=== PATIENT | female | born 1965 | race Two or more races ===

== ENCOUNTER 2017-06-12 17:19 | Emergency (ER) | payer MEDICAID, OTHER, SELFPAY ==
[~2017-06-12] VITALS: Ht 160 cm; Wt 79.8 kg
[2017-06-12] MEDS ORDERED: FAMOTIDINE 20 MG TABLET PO ONE (18:00)
[2017-06-12] MEDS ORDERED: ONDANSETRON ODT 4 MG PO ONE (18:00)
[2017-06-12] MEDS ORDERED: MAALOX/HYOSCYAMINE/LIDOCAINE 45 ML BTL PO ONE (18:00)
[2017-06-12] MEDS ORDERED: FAMOTIDINE 20 MG TABLET ONE (18:35)
[2017-06-12] MEDS ORDERED: ONDANSETRON ODT 4 MG ONE (18:35)
[2017-06-12] MEDS ORDERED: MAALOX/HYOSCYAMINE/LIDOCAINE 45 ML BTL ONE (18:35)
[2017-06-12 18:44] LABS: BASOPHILS # (AUTO) 0.04 x10^3/uL (0-0.1); BASOPHILS % (AUTO) 1 % (0-1); EOSINOPHILS # (AUTO) 0.15 x10^3/uL (0-0.4); EOSINOPHILS % (AUTO) 2 % (1-7); LYMPHOCYTES # (AUTO) 4.25 x10^3/uL (1-3.4); LYMPHOCYTES % (AUTO) 52 % (22-44); MD NO; MEAN CORPUSCULAR HEMOGLOBIN 30.4 pg (27.0-34.8); MEAN CORPUSCULAR HGB CONC 33.7 g/dL (32.4-35.8); MEAN CORPUSCULAR VOLUME 90.1 fL (80-100); MEAN PLATELET VOLUME 8.3 fL (7.4-10.4); MONOCYTES # (AUTO) 0.74 x10^3/uL (0.2-0.8); MONOCYTES % (AUTO) 9 % (2-9); NEUTROPHILS # (AUTO) 2.95 x10^3/uL (1.8-6.8); NEUTROPHILS % (AUTO) 36 % (42-75); PLATELET COUNT 245 x10^3/uL (130-400); RED BLOOD COUNT 4.36 x10^6/uL (3.82-5.3); RED CELL DISTRIBUTION WIDTH 14.2 % (9.6-15.2)
[2017-06-12 18:49] LABS: MICROSCOPIC AUTO
[2017-06-12 18:53] LABS: CULTURE INDICATED? YES
[2017-06-12 18:58] LABS: ALBUMIN 3.4 g/dL (3.4-5.0); ANION GAP 8 mmol/L (5-15); CALCIUM 8.7 mg/dL (8.5-10.1); CHLORIDE 108 mmol/L (98-107)
[2017-06-12 19:02] LABS: ALANINE AMINOTRANSFERASE 28 U/L (12-78); ALKALINE PHOSPHATASE 84 U/L (45-117); BILIRUBIN,TOTAL 0.4 mg/dL (0.2-1.0); CREATININE 0.77 mg/dL (0.55-1.02); TOTAL PROTEIN 7.8 g/dL (6.4-8.2)
[2017-06-12 19:08] LABS: TROPONIN I < 0.015 ng/mL (0.000-0.045)
[2017-06-12 19:44] VITALS: BP 158/77
== END 2017-06-12 20:00 | disposition home or self-care (01) ==
LOC: ED 19:54
DX: R10.13 Epigastric pain (principal); K29.00 Acute gastritis without bleeding
CPT/HCPCS: 36415; 76700; 80053; 81001; 83690; 84484; 85025; 87086; 93005; 99285; Q0162

== ENCOUNTER 2018-11-13 01:12 | Emergency (ER) | payer MEDICAID ==
[~2018-11-13] VITALS: Ht 154.9 cm; Wt 81.3 kg
[2018-11-13 01:19] VITALS: BP 153/75
[2018-11-13] MEDS ORDERED: PENICILLIN VK 500MG TABLET ONE (01:57)
[2018-11-13] MEDS ORDERED: ACETAMINOPHEN 500 MG TABLET ONE (01:57)
[2018-11-13] MEDS ORDERED: PENICILLIN VK 500MG TABLET PO SCH (02:00)
[2018-11-13] MEDS ORDERED: ACETAMINOPHEN 500 MG TABLET PO ONE (02:00)
== END 2018-11-13 02:10 | disposition home or self-care (01) ==
LOC: ED 01:50
DX: K08.89 Other specified disorders of teeth and supporting structures (principal); H92.01 Otalgia, right ear
CPT/HCPCS: 99283